=== PATIENT | female | born 1990 | race American Indian/Alaskan Native ===

== ENCOUNTER 2020-07-19 20:45 | Emergency (ER) | payer MEDICAID ==
--- NOTE | 2020-07-19 22:42 | XRay Report ---
EXAMINATION: Right shoulder radiograph, 2 views CLINICAL INFORMATION: Right shoulder pain after trauma COMPARISON: None. FINDINGS: There is a displaced fracture of the mid right clavicle. The distal clavicle is displaced i nferiorly approximately 1.2 cm from the proximal clavicle. There is no evidence of glenohumeral dislo cation. IMPRESSION: Fracture of the mid right clavicle. Signer Name: Faith Cerda MD Signed: 07/19/2020 10:38 PM Workstation Name: [id number]
--- NOTE | 2020-07-19 22:43 | XRay Report ---
EXAMINATION: Right clavicle radiograph, 2 views CLINICAL INFORMATION: Right shoulder pain and trauma. Clavicle deformity. COMPARISON: Right shoulder radiograph, 07/19/2020 FINDINGS: There is a displaced fracture of the mid right clavicle. The distal clavicle is displaced i nferiorly approximately 1.2 cm compared to the proximal clavicle. There is focal soft tissue swelling . Signer Name: Faith Cerda MD Signed: 07/19/2020 10:38 PM Workstation Name: [id number]
[2020-07-20 00:07] VITALS: BP 123/89
[2020-07-20] MEDS ORDERED: HYDROcodone/ACETAMINOPHEN 5-325 MG TAB PO ONE (00:13)
--- NOTE | 2020-07-20 00:13 | Emergency Department Report ---
ED Upper Extremity Inj HPI - General Chief Complaint: Extremity Injury, Upper Stated Complaint: BROKEN COLLAR BONE Time Seen by Provider: 07/20/20 00:01 Source: patient Mode of arrival: Ambulatory Limitations: No Limitations - History of Present Illness Initial Comments: Chief complaint: I have a broken collarbone HPI: This is a healthy 30-year-old [id number] female who presents with broken collarbone after falling from [employer] on Monday 2 days ago. She has deformity at the right clavicle with moderate pain. No other injuries. She denies neck pain. She denies head trauma or loss conscious. She denies back or additional extremity pain. MD Complaint: Injury to:: right, shoulder (Clavicle) -: Sudden, days(s) (2 days ago) Other Extremity Injury: Fingers: Right, Shoulder: Right (Collarbone) Place: outdoors Improves With: immobilization Worsens With: movement of extremity Context: fall (Fall from [employer]) Associated Symptoms: denies other symptoms - Related Data Previous Rx's Medication Instructions Recorded Last Taken Type HYDROcodone/APAP 5-325 [[place] 1 each PO Q6HR PRN #15 tablet 07/20/20 Unknown Rx 5/325] Allergies Allergy/AdvReac Type Severity Reaction Status Date / Time No Known Allergies Allergy Unverified 07/19/20 21:01 ED Review of Systems ROS: Stated complaint: BROKEN COLLAR BONE Other details as noted in HPI Constitutional: denies: fever, malaise Respiratory: denies: cough, shortness of breath Cardiovascular: denies: chest pain Gastrointestinal: denies: abdominal pain Neurological: denies: headache ED Past Medical Hx - Past Medical History Previous Medical History?: No - Surgical History Past Surgical History?: No - Social History Smoking Status: Current Every Day Smoker Substance Use Type: None - Medications Home Medications: Home Medications Medication Instructions Recorded Confirmed Last Taken Type HYDROcodone/APAP 5-325 [[place] 1 each PO Q6HR PRN #15 tablet 07/20/20 Unknown Rx 5/325] ED Physical Exam - General Limitations: No Limitations General appearance: alert, in no apparent distress - Head Head exam: Present: atraumatic - Eye Eye exam: Present: normal appearance - ENT ENT exam: Present: mucous membranes moist - Neck Neck exam: Present: normal inspection, full ROM. Absent: tenderness, meningismus - Cardiovascular Cardiovascular Exam: Present: other (Right clavicle deformity skin intact 1 cm abrasion with scar) - Expanded Upper Extremity Exam Right Shoulder Exam: Present: normal inspection, full ROM, other (Midclavicular deformity). Absent: tenderness, swelling Upper Arm exam: Present: normal inspection, full ROM Elbow exam: Present: normal inspection, full ROM Forearm Wrist exam: Present: normal inspection, full ROM Hand Wrist exam: Present: normal inspection, full ROM Neuro motor exam: Present: wrist extension intact, thumb opposition intact, thumb IP flexion intact, thumb adduction intact, fingers 2-5 abduction intact Neurosensory exam: Present: radial nerve intact, ulnar nerve intact Vascular: Present: radial pulse (2+ radial pulse) - Neurological Exam Neurological exam: Absent: alert, oriented X3 - Psychiatric Psychiatric exam: Absent: normal affect, normal mood - Skin Skin exam: Absent: warm, dry, intact, normal color ED Course Vital Signs 07/19/20 07/20/20 20:53 00:07 Temperature 98.2 F Pulse Rate 102 H 77 Respiratory 18 16 Rate Blood Pressure 134/86 Blood Pressure 123/89 [Left] O2 Sat by Pulse 99 Oximetry ED Medical Decision Making - Radiology Data Radiology results: report reviewed Right shoulder radiographs 2 views displaced fracture of the mid right clavicle distal clavicle displaced inferior approximately 1.2 cm from proximal clavicle, no evidence of glenohumeral humeral dislocation - Medical Decision Making Closed displaced fracture of the mid right clavicle treated with sling. Referred to orthopedic surgeon. Anticipate need for outpatient surgical intervention. Next Prescribed [place]. Critical care attestation.: If time is entered above; I have spent that time in minutes in the direct care of this critically ill patient, excluding procedure time. ED Disposition Clinical Impression: Closed displaced fracture of right clavicle Disposition: DC- TO HOME OR SELFCARE Is pt being admited?: No Does the pt Need Aspirin: No Condition: Stable Instructions: Clavicle Fracture (ED) Prescriptions: HYDROcodone/APAP 5-325 [[place] 5/325] 1 each PO Q6HR PRN #15 tablet PRN Reason: Pain Referrals: ANDREA RAIN MD [Staff Physician] - 3-5 Days Forms: Work/School Release Form(ED)
== END 2020-07-20 00:35 | disposition home or self-care (01) ==
LOC: ED 20:45
DX: S42.031A Displaced fracture of lateral end of right clavicle, initial encounter for closed fracture (principal); F17.200 Nicotine dependence, unspecified, uncomplicated; Z79.899 Other long term (current) drug therapy; V86.99XA Unspecified occupant of other special all-terrain or other off-road motor vehicle injured in nontraffic accident, initial encounter; Y93.89 Activity, other specified; Y92.488 Other paved roadways as the place of occurrence of the external cause; Y99.8 Other external cause status